=== PATIENT | male | born 1945 | race Caucasian/White ===

== ENCOUNTER 2020-12-29 05:30 | Day surgery (SDC) | payer BC ==
[2020-12-27 16:13] VITALS: BMI 29.1
[~2020-12-29 05:30] MED LIST: TRIAMCINOLONE ACET 40MG/1ML VIAL IM ONE
[2020-12-29] MEDS ORDERED: LIDOCAINE HCL 1%, 10 MG/ML (20ML VIAL) ONE (07:17)
[2020-12-29] MEDS ORDERED: LIDOCAINE HCL 2% (20ML MULTI-DOSE VIAL) ONE (07:17)
[2020-12-29] MEDS ORDERED: TRIAMCINOLONE ACET 40MG/1ML VIAL ONE (07:24)
[2020-12-29] MEDS ORDERED: LIDOCAINE HCL 1%, 10 MG/ML (20ML VIAL) INF ONE (07:52)
[2020-12-29] MEDS ORDERED: BUPIVACAINE HCL/PF 0.5% (5 MG/ML) 30 ML VIAL IJ ONE (07:53)
[2020-12-29] MEDS ORDERED: IOHEXOL 180 MG/1 ML ML IJ ONE (07:53)
[2020-12-29] MEDS ORDERED: TRIAMCINOLONE ACET 40MG/1ML VIAL IM ONE (07:59)
[2020-12-29 08:25] VITALS: BP 145/95; PULSE 67; TEMP 97.1
== END 2020-12-29 08:49 | disposition home or self-care (01) ==
LOC: JASU-SURG 05:30
PROVIDERS: ATTEND Pain Medicine Pain Medicine
PROC: 3E0U3BZ Introduction of Anesthetic Agent into Joints, Percutaneous Approach (ICD-10-PCS; principal; 2020-12-29 07:30)
DX: M53.3 Sacrococcygeal disorders, not elsewhere classified (principal)
CPT/HCPCS: 76000-TC-FY

== ENCOUNTER 2021-03-04 11:45 | Inpatient (IN) | payer BC ==
[2021-03-02 15:00] VITALS: BMI 28.5
[2021-03-10] MEDS ORDERED: BUPIVACAINE HCL 50 ML ONE (11:52)
[2021-03-10] MEDS ORDERED: MIDAZOLAM HCL 2 MG/2 ML SINGLE DOSE VIAL ONE ×2 (11:52→13:15)
[2021-03-10] MEDS ORDERED: BUPIVACAINE HCL/PF 0.5% (5 MG/ML) 30 ML VIAL IJ ONE (11:53)
[2021-03-10] MEDS ORDERED: LIDOCAINE HCL/PF 2% SDV 5ML VIAL ONE (11:54)
[2021-03-10] MEDS ORDERED: VANCOMYCIN 1,000 MG VIAL (RESTRICTED TO ID ONLY) ONE (11:54)
[2021-03-10] MEDS ORDERED: EPHEDRINE SULFATE/0.9% NACL/PF 50 MG/10 ML SYRINGE NR ONE (12:58)
[2021-03-10] MEDS ORDERED: TRANEXAMIC ACID 1000 MG/10 ML VIAL ONE (13:13)
[2021-03-10] MEDS ORDERED: BUPIVICAINE 0.25%/MORPH PF/KETOROLAC - 51ML DISP.SYRINGE IA ONE ×2 (14:55→15:17)
[2021-03-10] MEDS ORDERED: VANCOMYCIN 1,000 MG VIAL (RESTRICTED TO ID ONLY) IVPB ONE ×2 (15:16)
[2021-03-10] MEDS ORDERED: ONDANSETRON 4 MG/2 ML VIAL IVPUSH PRN ×2 (16:07→16:12)
[2021-03-10] MEDS ORDERED: MAGNESIUM HYDROX 2400MG/30ML ORAL SUSPENSION 30 ML CUP PO PRN (16:07)
[2021-03-10] MEDS ORDERED: MAG HYDROX/AL HYDROX/SIMETH 30 ML UNIT-DOSE CUP PO PRN (16:07)
[2021-03-10] MEDS ORDERED: oxyCODONE HCL 5 MG TABLET PO PRN (16:12)
[2021-03-10] MEDS ORDERED: LACTATED RINGERS SOLUTION 1,000 ML IV SCH (16:15)
[2021-03-10] MEDS: oxyCODONE HCL 5 MG TABLET PO PRN (19:44)
[2021-03-10] MEDS: CEFAZOLIN 2 GM/D5W 2 GM/50 ML ML IVPB SCH (20:31)
[2021-03-10] MEDS: GABAPENTIN 300 MG CAPSULE PO SCH (21:33)
[2021-03-10] MEDS: SENNOSIDES/DOCUSATE COMBO (SENNA PLUS) TABLET (UD) PO SCH (21:33)
[2021-03-11] MEDS: oxyCODONE HCL 5 MG TABLET PO PRN ×3 (06:01→15:26)
[2021-03-11] MEDS: CEFAZOLIN 2 GM/D5W 2 GM/50 ML ML IVPB SCH ×2 (06:02→13:30)
[2021-03-11 07:43] LABS: HEMATOCRIT 35.1 % (35.4-49); HEMOGLOBIN 11.6 GM/dl (11.7-16.9); MCH 31.8 pg (25.7-33.7); MCHC 33.1 g/dl (32.0-35.9); MEAN CELL VOLUME 96.1 fl (80-96); PLATELET COUNT 240 K/MM3 (134-434); RBC 3.65 M/mm3 (4.00-5.60); RDW 12.5 % (11.9-15.9); WHITE BLOOD COUNT 9.2 K/mm3 (4.0-10.8)
[2021-03-11 08:04] LABS: CREATININE 0.9 mg/dl (0.55-1.3)
[2021-03-11] MEDS: ASPIRIN 325 MG TABLET PO SCH ×2 (09:19→21:19)
[2021-03-11] MEDS: SENNOSIDES/DOCUSATE COMBO (SENNA PLUS) TABLET (UD) PO SCH ×2 (09:19→21:19)
[2021-03-11] MEDS: GABAPENTIN 300 MG CAPSULE PO SCH ×2 (09:19→21:19)
[2021-03-11] MEDS: MULTIVITAMINS (DAILY MVI) TABLET (FP) PO SCH (09:20)
[2021-03-11] MEDS: PANTOPRAZOLE 40 MG TABLET PO SCH (09:20)
[2021-03-11] MEDS ORDERED: PT OWN MED DRAWER 7, Y5N ONE (15:10)
[2021-03-11] MEDS: ACETAMINOPHEN 325 MG TABLET (FP) PO PRN (15:15)
[2021-03-11] MEDS: LEVOTHYROXINE NA 50 MCG TABLET (FP) PO SCH (15:17)
[2021-03-11] MEDS: INSULIN SLIDING SCALE (NOVOLOG) 1 VIAL SQ SCH ×2 (16:45→21:19)
[2021-03-12] MEDS: ACETAMINOPHEN 325 MG TABLET (FP) PO PRN (05:13)
[2021-03-12] MEDS: LEVOTHYROXINE NA 50 MCG TABLET (FP) PO SCH (06:25)
[2021-03-12] MEDS: INSULIN SLIDING SCALE (NOVOLOG) 1 VIAL SQ SCH ×2 (06:28→10:25)
[2021-03-12 08:22] LABS: HEMATOCRIT 35.7 % (35.4-49); HEMOGLOBIN 11.6 GM/dl (11.7-16.9); MCH 31.1 pg (25.7-33.7); MCHC 32.5 g/dl (32.0-35.9); MEAN CELL VOLUME 95.8 fl (80-96); MEAN PLT VOLUME 8.4 fl (7.5-11.1); PLATELET COUNT 222 K/MM3 (134-434); RBC 3.73 M/mm3 (4.00-5.60); RDW 12.5 % (11.9-15.9); WHITE BLOOD COUNT 8.7 K/mm3 (4.0-10.8)
[2021-03-12 09:25] VITALS: BP 137/74; PULSE 90; TEMP 99
[2021-03-12] MEDS: GABAPENTIN 300 MG CAPSULE PO SCH (09:25)
[2021-03-12] MEDS: SENNOSIDES/DOCUSATE COMBO (SENNA PLUS) TABLET (UD) PO SCH (09:25)
[2021-03-12] MEDS: MULTIVITAMINS (DAILY MVI) TABLET (FP) PO SCH (09:25)
[2021-03-12] MEDS: ASPIRIN 325 MG TABLET PO SCH (09:25)
[2021-03-12] MEDS: PANTOPRAZOLE 40 MG TABLET PO SCH (09:25)
[2021-03-12] MEDS ORDERED: PT OWN MED DRAWER 7, Y5N ONE (11:29)
== END 2021-03-12 12:13 | disposition home or self-care (01) | DRG 470 ==
LOC: FM/S 03-10 10:25
PROVIDERS: ADMIT Orthopaedic Surgery Sports Medicine; ATTEND Nurse Practitioner Family
PROC: 0SR90JZ Replacement of Right Hip Joint with Synthetic Substitute, Open Approach (ICD-10-PCS; principal; 2021-03-10 13:33)
DX: M16.11 Unilateral primary osteoarthritis, right hip (principal); I10 Essential (primary) hypertension; E11.9 Type 2 diabetes mellitus without complications; E06.3 Autoimmune thyroiditis
CPT/HCPCS: 36415; 73502-TC-RT-FY; 80048; 85027; 88305-TC; 88311-TC; 94760; 97010-GP; 97116-GP; 97163-GP